=== PATIENT | female | born 1980 | race Caucasian/White ===

== ENCOUNTER 2017-05-31 07:48 | Emergency (ER) | payer OTHER ==
[~2017-05-31] VITALS: Ht 177.8 cm; Wt 67.6 kg
[~2017-05-31 07:48] MED LIST: AMITRIPTYLINE H50 MG PO; ASPIR 8181 MG PO; ASPIRIN EC81 MG PO; BIOTIN2500 MCG PO; BUPROPION XL150 MG PO; FLUTICASONE PRO16 GM NAS; KEFLEX500 MG PO; MOTRIN800 MG PO; MULTI VITAMIN1 EACH PO; NAPROXEN375 MG PO; NEURONTIN300 MG PO; NITROSTAT0.4 MG SL; NORCO 5-325 TA1 EACH PO; PROMETHAZINE HC25 M1 PO; PYRIDIUM200 MG PO; TRAMADOL HCL50 MG PO; VENTOLIN HFA18 GM INH; VICODIN 5-5001 EACH PO; VITAMIN B12-FO1 EACH PO; WELLBUTRIN75 MG PO; XANAX0.5 MG PO; ZOFRAN ODT4 MG PO
[2017-05-31] MEDS ORDERED: KETOROLAC TROME10 MG PO (09:21)
[2017-05-31] MEDS ORDERED: BACTRIM DS TAB1 EACH PO (09:21)
== END 2017-05-31 09:47 | disposition home or self-care (01) ==
LOC: ED 07:48
DX: N39.0 Urinary tract infection, site not specified (principal); Q21.3 Tetralogy of Fallot; F17.200 Nicotine dependence, unspecified, uncomplicated; Z90.49 Acquired absence of other specified parts of digestive tract; Z88.1 Allergy status to other antibiotic agents; Z88.5 Allergy status to narcotic agent; Z79.899 Other long term (current) drug therapy
CPT/HCPCS: 74176; 80053; 81001; 82150; 83690; 84703; 85025; 87077; 87088; 87186; 96361; 96374; 96375; 99284; J1885; J2405; J7030

== ENCOUNTER 2017-10-22 14:43 | Emergency (ER) | payer OTHER ==
[~2017-10-22] VITALS: Ht 177.8 cm; Wt 67.6 kg
--- OUTSIDE RECORDS SUMMARY | ~2017-10-22 | XMS | Clinical Summary ---
Demographics + + + | Address | [address] | | | [place] [address] | + + + | Home Phone | | + + + | Preferred Language | Unknown | + + + | Marital Status | Single | + + + | Sabianist Affiliation | UNK | + + + | Race | White | + + + | Ethnic Group | Not or | + + + Author + + + | Author | [facility] | + + + | Organization | [facility] | + + + | Address | Unknown | + + + | Phone | Unavailable | + + + Support +------+ + + + | Name | Relationship | Address | Phone | +------+ + + + ECON | [place] | | +------+ + + + Care Team Providers + +------+ + | Care Chief Green Officer Name | Role | Phone | + +------+ + | Darwin Chang DO | PP | | + +------+ + Source Comments QUE is fully live on both [facility] Ambulatory and [facility] InPatient.[facility] Allergies + + + + + + | Active Allergy | Reactions | Severity | Noted | Comments | | | | | Date | | + + + + + + | Ciprofloxacin | Tachycardia | | 01/18/20 | | | | | | 08 | | + + + + + + Current Medications + + +-------+---------+------+------+-------+ | Prescription | Sig. | Disp. | Refills | Star | End | Statu | | | | | | t | Date | s | | | | | | Date | | | + + +-------+---------+------+------+-------+ | VITAMIN | take 1 tab daily | | | | | Activ | | OR | | | | | | e | + + +-------+---------+------+------+-------+ | FOLIC ACID OR | take 1 tab daily | | | | | Activ | | | | | | | | e | + + +-------+---------+------+------+-------+ Active Problems + + + | Problem | Noted Date | + + + | Tetralogy of Fallot | 01/17/2008 | + + + | Syncope | 01/17/2008 | + + + Social History + +-------+ +--------+------+ | Tobacco Use | Types | Packs/Day | Years | Date | | | | | Used | | + +-------+ +--------+------+ | Former Smoker | | | | | + +-------+ +--------+------+ + + + | Sex Assigned at | Date Recorded | | | | + + + | Not on file | | + + + Last Filed Vital Signs + + + + | Vital Sign | Reading | Time Taken | + + + + | Blood Pressure | 118/68 | 04/06/2008 2:21 PM PDT | + + + + | Pulse | 111 | 04/06/2008 2:21 PM PDT | + + + + | Temperature | - | - | + + + + | Respiratory Rate | 18 | 04/06/2008 2:21 PM PDT | + + + + | Oxygen Saturation | 98% | 04/06/2008 2:21 PM PDT | + + + + | Inhaled Oxygen | - | - | | Concentration | | | + + + + | Weight | 69.6 kg (153 lb 8 | 04/06/2008 2:21 PM PDT | | | oz) | | + + + + | Height | 177.8 cm (5' 10") | 04/06/2008 2:21 PM PDT | + + + + | Body Mass Index | 22.02 | 04/06/2008 2:21 PM PDT | + + + + Plan of Treatment + + + + + | Health Maintenance | Due Date | Last Done | Comments | + + + + + | INFLUENZA VACCINE | | | | | (FLU SHOT) | 7 | | | + + + + + Results Not on filefrom Last 3 Months
--- OUTSIDE RECORDS SUMMARY | ~2017-10-22 | XMS | Clinical Summary ---
Demographics + + + | Address | [address] | | | [place] [address] | + + + | Home Phone | | + + + | Preferred Language | Unknown | + + + | Marital Status | Single | + + + | Orthodoxy Affiliation | UNK | + + + | Race | White | + + + | Ethnic Group | Not or | + + + Author + + + | Author | [facility] | + + + | Organization | [...] Team Providers + +------+ + | Care Pacs Administrator Name | Role | Phone | + +------+ + | Darwin Chang DO | PP | | + +------+ + Source Comments QUE is fully live on both [facility] Ambulatory and [facility] InPatient.[facility] & [facility] Allergies + + + + + + [...]
[~2017-10-22 14:43] MED LIST changes: +BACTRIM DS TAB1 EACH PO; +KETOROLAC TROME10 MG PO
[2017-10-22] MEDS ORDERED: ZOFRAN ODT4 MG PO ×2 (15:25→16:36)
[2017-10-22] MEDS ORDERED: TAMIFLU75 MG PO (16:36)
--- NOTE | 2017-10-22 18:21 | EKG ---
[facility] [address] [place] [address] Signed Normal sinus rhythm with sinus arrhythmia Rightward axis Borderline ECG No previous ECGs available Confirmed by NASRIN CASTANO MD ([id number]) on 10/22/2017 6:21:31 PM Electronically Signed By: NASRIN CASTANO MD 10/22/17 182 PATIENT NAME: DEREK BLANCO Electrocardiogram DATE OF : 84 PHYSICIAN: NASRIN CASTANO MD REPORT #: [id number] REPORT IS CONFIDENTIAL AND NOT TO BE RELEASED WITHOUT AUTHORIZATION
== END 2017-10-22 16:55 | disposition home or self-care (01) ==
LOC: ED 14:43
DX: J10.1 Influenza due to other identified influenza virus with other respiratory manifestations (principal); Z87.891 Personal history of nicotine dependence; Z90.49 Acquired absence of other specified parts of digestive tract; Z98.890 Other specified postprocedural states; Z88.1 Allergy status to other antibiotic agents; Z88.5 Allergy status to narcotic agent; Z79.899 Other long term (current) drug therapy
CPT/HCPCS: 36415; 80053; 81001; 82150; 83690; 84484; 85025; 87502; 93005; 93010; 96361; 96374; 96375; 99283; J1885; J2405; J7030

== ENCOUNTER 2019-05-22 11:04 | Emergency (ER) | payer OTHER ==
[~2019-05-22] VITALS: Ht 177.8 cm; Wt 67.6 kg
[~2019-05-22 11:04] MED LIST changes: +TAMIFLU75 MG PO
--- NOTE | 2019-05-23 15:36 | EKG ---
[facility] [address] [place] [address] Signed Normal sinus rhythm with sinus arrhythmia Right atrial enlargement Rightward axis Pulmonary disease pattern Early repolarization Abnormal ECG When compared with ECG of 22-OCT-2017 15:15, No significant change was found Confirmed by NASRIN CASTANO MD ([id number]) on 05/23/2019 3:36:39 PM Electronically Signed By: NASRIN CASTANO MD 05/23/19 1536 PATIENT NAME: DEREK BLANCO Electrocardiogram DATE OF : 84 PHYSICIAN: NASRIN CASTANO MD REPORT #: [id number] REPORT IS CONFIDENTIAL AND NOT TO BE RELEASED WITHOUT AUTHORIZATION
== END 2019-05-22 13:28 | disposition home or self-care (01) ==
LOC: ED 11:04
DX: R07.89 Other chest pain (principal); F41.0 Panic disorder [episodic paroxysmal anxiety]; Z87.74 Personal history of (corrected) congenital malformations of heart and circulatory system; Z87.891 Personal history of nicotine dependence; Z88.1 Allergy status to other antibiotic agents; Z88.5 Allergy status to narcotic agent
CPT/HCPCS: 71045; 80053; 83735; 84484; 85025; 85379; 93005; 93010; 96374; 99285-25; J2060

== ENCOUNTER 2019-05-23 13:24 | Emergency (ER) | payer OTHER ==
[~2019-05-23] VITALS: Ht 177.8 cm; Wt 67.6 kg
--- OUTSIDE RECORDS SUMMARY | 2019-05-23 13:28 | XMS ---
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 Arleen has no Care Guidelines for this patient. [place] (12 MO.) [facility] T[facility] 2 NOTE: Visits indicate total known visits. ED[facility] [place] (12 [place] 05/23/2019 13:[address] [facility] [place] TYPE: Emergency COMPLAINT: - CHEST PAIN, 05/22/2019 11:05 [facility] [place] TYPE: Emergency COMPLAINT: - CHEST PAIN, [facility] INPATIENT VISIT TRACKING (12 MO.) No inpatient visits to display in this time frame [email or web address]
--- NOTE | 2019-05-24 14:04 | EKG ---
[facility] [address] [facility] [place], [place] [address] Signed Normal sinus rhythm with sinus arrhythmia Right atrial enlargement Rightward axis Borderline ECG No previous ECGs available Confirmed by NASRIN CASTANO MD ([id number]) on 05/24/2019 2:04:43 PM Electronically Signed By: NASRIN CASTANO MD 05/24/19 1404 PATIENT NAME: DEREK BLANCO Electrocardiogram DATE OF : 84 PHYSICIAN: NASRIN CASTANO MD REPORT #: [id number] REPORT IS CONFIDENTIAL AND NOT TO BE RELEASED WITHOUT AUTHORIZATION
== END 2019-05-23 17:33 | disposition home or self-care (01) ==
LOC: ED 13:24
DX: R00.2 Palpitations (principal); Z87.891 Personal history of nicotine dependence; Z88.1 Allergy status to other antibiotic agents; Z88.5 Allergy status to narcotic agent
CPT/HCPCS: 36415; 84443; 84484; 93005; 93010; 93225; 93226; 93227; 99285-25

== ENCOUNTER 2021-02-11 03:50 | Observation (INO) | payer OTHER ==
[~2021-02-11] VITALS: Ht 177.8 cm; Wt 80.3 kg
[2021-02-11] MEDS ORDERED: AMOXICILLIN500 MG PO (04:03)
--- NOTE | 2021-02-11 09:30 | NUR ---
PT ARRIVED TO FLOOR FROM ER. ASSESSMETN COMPLETED. D5 1/2 NS WITH 20K STARTED AT 75ML/HR. PT REPORTS MINIMAL PAIN. NO SOB OR BREATHING PROBLEMS. PT STIH SLIGHT NAUSEA. ORIENTED TO ROOM. CALL LIGHT IN REACH. WATER PROVIDED.
--- NOTE | 2021-02-11 10:30 | NUR ---
PT C/O NAUSEA, ZOFRAN ADMISNTERED.
--- NOTE | 2021-02-11 13:28 | NUR ---
PATIENT CALLED TO NOTIFY STAFF THAT SHE IS NAUSEOUS. NOTIFIED DR SIMMS PATIENT HAS NO MEDICATION AVAILABLE. RECEIVED VERBAL ONE TIME ORDER FOR 4MG OF ZOFRAN. VERIFIED ORDER BY REPEATING BACK TO MD. PRN NAUSEA MEDICATION GIVEN PER ORDER. PATIENT HAD 200ML OF EMESIS. PATIENT IS NOW RESTING IN BED AND APPEARS RELAXED. NO FURTHER NEEDS NOTED. NO SOB NOTED. CALL LIGHT IN REACH.
--- NOTE | 2021-02-11 13:44 | NUR ---
PATIENT SITTING UP IN BED WORKING ON LUNCH. VITALS AND I&O'S CHARTED. CALL LIGHT IN REACH. NO FURTHER NEEDS AT THIS TIME.
[2021-02-11] MEDS ORDERED: CITALOPRAM HBR20 MG PO (14:37)
--- NOTE | 2021-02-11 14:37 | NUR ---
MED REC COMPLETE
--- NOTE | 2021-02-11 17:00 | NUR ---
PT TRYING PUDDING AND SPRITE FOR DINNER. IVAN NEEDS. CALL LIGHT IN REACH.
--- NOTE | 2021-02-11 18:58 | NUR ---
PT REPORTING PAIN 04/05. IV TORIDOL ADMISNTERED. FLUIDS INFUSING WNL. PT LYING IN BED. AAO. CALL LIGHT IN REACH.
--- NOTE | 2021-02-11 19:13 | NUR ---
pt with 100ml emesis and reproting nausea. zofran admsintered. pt encourage to only drink water for the night and we'll attepmt full liquid in the morning again.
--- NOTE | 2021-02-11 19:30 | NUR ---
IN ROOM FOR REPORT, PT IS RESTING WITH EYES CLOSED. RR IS EVEN AND NONLABORED. CALL LIGHT IS CLOSE.
--- NOTE | 2021-02-11 20:45 | NUR ---
IN ROOM TO ASSESS PT. AND ADMINISTER MEDICATIONS. SHE REPORTS 4/10 PAIN TOLERABLE AND DENIES NEED FOR PAIN MEDS AT THIS TIME. SHE STATES SHE FEELS LIKE THE SWELLING ON THE R SIDE OF HER FACE IS IMPROVING. SHE DENIES OTHER SYMPTOMS AT THIS TIME AND STATES THE NAUSEA HAS SUBSIDED. PT DENIES NEEDS AND CALL LIGHT IS CLOSE. IV ABX INFUSING.
--- NOTE | 2021-02-11 20:51 | NUR ---
IN TO GET VITALS, I@Os ARE DONE, NO FURTHER NEEDS AT THIS TIME
--- NOTE | 2021-02-11 21:30 | NUR ---
PT CALLED, IV ABX COMPLETE. RESTARTED MAINTENCE FLUIDS. PT IN BED, LAYING ON HER LEFT SIDE. HAS NO OTHER NEEDS AT THIS TIME.
--- NOTE | 2021-02-12 00:11 | NUR ---
PT IS RESTING WITH EYES CLOSED, RR IS EVEN AND NONLABORED. CALL LIGHT IS CLOSE AND IV IS INFUSING FINE.
--- NOTE | 2021-02-12 01:15 | NUR ---
IN ROOM TO ADMINISTER TORADOL FOR 6/10 PAIN. SHE WAS SLEEPING ON HER RIGHT SIDE AND THINKS IT MAY HAVE MADE THE SWELLING ON HER FACE INCREASE. SHE DENIES NEEDING TO VOID AT THIS TIME AND IV FLUIDS ARE INFUSING. VS TAKEN AND ENTERED AND CALL LIGHT IS CLOSE.
--- NOTE | 2021-02-12 02:14 | NUR ---
PT IS RESTING WITH EYES CLOSED, RR IS EVEN AND NONLABORED. CALL LIGHT IS CLOSE AND IV IS INFUSING FINE.
--- NOTE | 2021-02-12 03:56 | NUR ---
PT IS RESTING WITH EYES CLOSED, RR IS EVEN AND NONLABORED. CALL LIGHT IS CLOSE AND IV IS INFUSING FINE.
--- NOTE | 2021-02-12 05:40 | NUR ---
PT IS RESTING WITH EYES CLOSED, RR IS EVEN AND NONLABORED. CALL LIGHT IS CLOSE AND IV IS INFUSING FINE.
--- NOTE | 2021-02-12 07:52 | NUR ---
this rn received report from olivia rubio. this rn to assume care
--- NOTE | 2021-02-12 08:40 | NUR ---
THIS RN IN PTS ROOM TO GIVE PT HER THE MORNING MEDS. PT STATES THAT HER PAIN THIS AM IS 3/10, PT STATES THAT THIS IS TOLERABLE AND THE SWELLING AND REDNESS APPEARS TO BE IMPROVING. PT STATES THAT SHE IS TAKING HER BREAKFAST SLOWLY THIS AM DUE TO GETTING SICK /NAUSEOUS LAST NIGHT. PT HAS NO OTHER CONCERNS THAT SHE FEELS THAT NEED TO BE ADDRESSED THIS AM
--- NOTE | 2021-02-12 09:45 | NUR ---
Spoke with Patricia.Edema in face has decreased. Plans to dc tomorrow. States her brother will assist her and plans on picking her up from the hospital.
--- NOTE | 2021-02-12 12:45 | NUR ---
THIS RN IN PTS ROOM TO GIVE PT PAIN MEDS. THIS RN PROVIDED PT WITH 30MG OF TORADOL AT THIS TIME. PT REPORTS PAIN IN RIGHT CHEEK TO BE 5/10.
--- NOTE | 2021-02-12 15:30 | NUR ---
THIS RN IN PTS ROOM TO GIVE PT HER SCHEDULED ANTIBIOTICS. PT REPORTS THAT HER PAIN IS IMPROVED FROM PAIN MEDS AND STATES THAT SHE IS FEELING BETTER AT THIS TIME.
--- NOTE | 2021-02-12 17:52 | NUR ---
PATIENT AWAKE IN BED, HAPPY THAT SH'E ABLE TO ANJOY A LITTLE DINNER WITHOUT MUCH PAIN. VITALS AND I&OS CHARTED. FRESH ICE WATER PROVIDED, CALL LIGHT IN REACH
--- NOTE | 2021-02-12 19:22 | NUR ---
IN ROOM FOR REPORT, PT DENIES NEEDS AT THIS TIME. STATES HER PAIN IS INCREASING AND WOULD LIKE TORADOL WHEN SHE CAN HAVE IT. CALL LIGHT IS CLOSE.
--- NOTE | 2021-02-12 20:15 | NUR ---
IN TO GET VITALS, PT UP TO TOILET RECENTLY, ICE WATER FILLED
--- NOTE | 2021-02-12 20:47 | NUR ---
IN ROOM TO ADMINISTER MEDICATIONS AND TORADOL FRO 5/10 PAIN. PT'S R JAW HAS DECREASED SWELLING FROM LAST NIGHT WITH A LITTLE BIT OF REDNESS. PT REPORTS IT IS IMPROVED WELL. SHE POINTED OUT AN AREA ON THE FRONT OF HER NECK THAT IS A LITTLE RED BUT NO SWELLING AND NO REDNESS ANYWHERE ELSE ON HER BODY, NOT ITCHY. TOLD DR SIMMS AND SHE STATES THAT WAS THERE PREVIOUSLY. WILL MONITOR. PT REPORT NAUSEA AT TIME AND REPORTS DECREASED APPETITE. SHE DENIES FURTHER NEEDS AT THIS TIME. CALL LIGHT IS CLOSE.
--- NOTE | 2021-02-12 21:44 | NUR ---
IV ALARMING. ABX COMPLETE. NO NEEDS AT THIS TIME. MAINTAINCE FLUIDS INFUSING PER ORDER.
--- NOTE | 2021-02-12 22:12 | NUR ---
PT IS AWAKE IN BED. SHE RATES PAIN AT 3/10. SHE DENIES NEEDS AT THIS TIME. CALL LIGHT IS CLOSE.
--- NOTE | 2021-02-13 00:17 | NUR ---
PT IS RESTING WITH EYES CLOSED, RR IS EVEN AND NONLABORED. CALL LIGHT IS CLOSE AND IV IS INFUSING FINE.
--- NOTE | 2021-02-13 02:21 | NUR ---
WOKE PT TO ADMINISTER IV ABX. SHE DENIES MUCH PAIN AT THIS TIME OR INCREASED SWELLING. SHE IS SWALLOWING AND BREATHING FINE. SLIGHT REDNESS TO JAW AND NECK. PT DENIES FURTHER NEEDS. CALL LIGHT IS CLOSE.
--- NOTE | 2021-02-13 03:19 | NUR ---
PT'S IV PUMP WAS BEEPING, IV ABX ARE DONE. PRIMARY IV FLUID RESTARTED. PT DENIES NEEDS. CALL LIGHT IS CLOSE.
--- NOTE | 2021-02-13 06:05 | NUR ---
IN TO GET VITALS, TOILET HAT EMPTIED AT THIS TIME, PT C\O OF JAW/FACE PAIN, RN INFORMED, ICE WATER REFILLED, NO FURTHER NEEDS AT THIS TIME
--- NOTE | 2021-02-13 06:29 | NUR ---
ADMINISTERED TORADOL FOR 6/10 PAIN, NEW BAG OF FLUIDS ARE HANGING. PT DENIES FURTHER NEEDS. CALL LIGHT IS CLOSE.
--- NOTE | 2021-02-13 07:01 | NUR ---
IN TO GET VITALS, TOILET HAT EMPTIED, PT C/O OF JAW PAIN, RN INFORMED AT THIS TIME, ICE WATER PROVIDED, NO FURTHER NEEDS
--- NOTE | 2021-02-13 08:30 | NUR ---
THIS RN IN PTS ROOM TO GIVE PT HER MORNING MEDS. PT STATES THAT SHE IS FEELING MUCH BETTER AND THAT SHE HAD THE ENOUGH ENERGY TO GET UP AND SIT UP IN THE CHAIR.
[2021-02-13] MEDS ORDERED: AUGMENTIN 875-1 EACH PO (08:59)
== END 2021-02-13 10:10 | disposition home or self-care (01) ==
LOC: ED 03:50 → MS 03:52
PROVIDERS: ADMIT Internal Medicine; ATTEND Internal Medicine
DX: L03.211 Cellulitis of face (principal); K04.7 Periapical abscess without sinus; R25.2 Cramp and spasm; Z20.822 Contact with and (suspected) exposure to COVID-19; Z87.891 Personal history of nicotine dependence
CPT/HCPCS: 36415; 70491; 80048; 83605; 83735; 84703; 85025; 87040; 96366; 96375; 96376; 99285-25; C9803; G0378; J0295; J1885; J2270; J2405; J3480; Q9967; U0003